=== PATIENT | female | born 1990 | race African-American/Black ===

== ENCOUNTER 2017-01-28 09:14 | Emergency (ER) | payer OTHER ==
[~2017-01-28 09:14] MED LIST: ALBUTEROL17 GM INH; BACTRIM DS TABL1 TA1 PO; DICLOFENAC PO; FLEXERIL10 MG PO; MEDROL4 MG/DOSE- PO; NAPROSYN500 MG PO; PEN-VEE K PO; ROBITUSSIN A-C-S1 ML PO
== END 2017-01-28 10:24 | disposition home or self-care (01) ==
LOC: CED 09:14
DX: J02.9 Acute pharyngitis, unspecified (principal); K21.9 Gastro-esophageal reflux disease without esophagitis
CPT/HCPCS: 87880; 96372; 99283; J0561